=== PATIENT | male | born 1990 | race Caucasian/White ===

== ENCOUNTER 2019-01-11 13:17 | Observation (INO) | payer SELFPAY ==
[~2019-01-11] VITALS: Ht 170.2 cm; Wt 97.3 kg
[2019-01-11 13:31] VITALS: Ht 170.2 cm; Wt 97.3 kg
[2019-01-11] MEDS ORDERED: ELAVIL25 MG PO (13:33)
[2019-01-11] MEDS ORDERED: TENORMIN25 MG PO (13:33)
[2019-01-11 15:00] VITALS: BP 120/79
[2019-01-11 15:47] VITALS: BP 133/88
[2019-01-11] MEDS ORDERED: ATARAX 25 MG TA25 MG PO (16:37)
[2019-01-11 16:55] VITALS: BP 143/94
== END 2019-01-11 16:55 | disposition home or self-care (01) ==
LOC: D.ER 13:17 → D.EDHOLD 16:26 → OBSVTIME 16:27 → D.EDHOLD 16:40
PROVIDERS: ADMIT Internal Medicine Nephrology
DX: F41.9 Anxiety disorder, unspecified (principal); I10 Essential (primary) hypertension